=== PATIENT | male | born 1985 | race Caucasian/White ===

== ENCOUNTER 2019-08-06 21:12 | Emergency (ER) | payer SELFPAY ==
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
[2019-08-06] MEDS ORDERED: IBUPROFEN 800 MG TABLET PO ONE (22:48)
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
[2019-08-06 23:13] VITALS: BP 164/94
== END 2019-08-06 23:11 | disposition home or self-care (01) ==
LOC: ER 21:12
DX: S42.025A Nondisplaced fracture of shaft of left clavicle, initial encounter for closed fracture (principal); V86.06XA Driver of dirt bike or motor/cross bike injured in traffic accident, initial encounter